=== PATIENT | female | born 1930 | race Caucasian/White ===

== ENCOUNTER 2017-01-21 19:33 | Emergency (ER) | payer OTHER ==
[~2017-01-21] VITALS: Ht 170.2 cm; Wt 102.8 kg
[~2017-01-21 19:33] MED LIST: ADVAIR 250/501 DISK IH; ATORVASTATIN CA20 MG PO; Advair 250/50 Diskus IH; Aspirin E.C. PO; BENTYL10 MG PO; CEFTIN500 MG PO; CENTRUM SILV1 TABLE1 PO; CLONAZEPAM0.5 MG PO; COLACE100 MG PO; Centrum Silver,Certa PO; DAILY VITAMIN1 EAC8 PO; ECOTRIN325 MG PO; ESCITALOPRAM OX10 MG PO; FERGON324 MG PO; FIBER TABS625 MG PO; FIBERCON625 MG PO; FLUOXETINE HCL10 MG PO; LANSOPRAZOLE30 MG PO; LEVOTHYROXINE112 MCG PO; LUMIGAN 0.50 DROP/22 RIGHT EYE; Levothroid,Synthroid PO; Lipitor PO; Lumigan 0.01% Ophth RIGHT EYE; MECLIZINE HCL25 MG PO; MONTELUKAST SOD10 MG PO; NITROSTAT0.4 MG SL; PROAIR HFA8.5 GM IH; PROPOXYPHENE1 TABLET PO; PROzac PO; Percocet 5/325,Endoc PO; Plavix PO; Prevacid PO; Proventil,Ventolin H IH; Prozac PO; Singulair PO; TEARS NATURALE-15 ML BOTH EYES; TYLENOL EXTRA500 MG PO; Tears Naturale II,Ar BOTH EYES; Tears Renewed,Artifi; Zocor PO
[2017-01-21 22:50] VITALS: BP 134/65
== END 2017-01-21 23:05 | disposition home or self-care (01) ==
LOC: EME 19:33
PROC: 0HQ0XZZ Repair Scalp Skin, External Approach (ICD-10-PCS; principal; 2017-01-21)
PROC: 3E0234Z Introduction of Serum, Toxoid and Vaccine into Muscle, Percutaneous Approach (ICD-10-PCS; principal; 2017-01-21)
DX: S01.01XA Laceration without foreign body of scalp, initial encounter (principal); W18.30XA Fall on same level, unspecified, initial encounter; Y93.01 Activity, walking, marching and hiking; Y92.009 Unspecified place in unspecified non-institutional (private) residence as the place of occurrence of the external cause; Z23 Encounter for immunization; E11.9 Type 2 diabetes mellitus without complications; J45.909 Unspecified asthma, uncomplicated; E03.9 Hypothyroidism, unspecified; F32.9 Major depressive disorder, single episode, unspecified; K21.9 Gastro-esophageal reflux disease without esophagitis; F41.9 Anxiety disorder, unspecified; Z91.040 Latex allergy status; Z88.2 Allergy status to sulfonamides
CPT/HCPCS: 70450; 99281; 99284

== ENCOUNTER 2017-06-14 18:26 | Emergency (ER) | payer OTHER ==
[~2017-06-14] VITALS: Ht 172.7 cm; Wt 97.8 kg
[2017-06-14 19:19] LABS: HEMATOCRIT 40.4 % (36.0-46.0); HEMOGLOBIN 12.7 G/DL (11.9-15.5); MCH 26.6 PG (29.0-34.0); MCHC 31.4 G/DL (30.0-36.0); MCV 84.5 FL (83-99); PLATELET COUNT 265 K/uL (156-360); RBC DIS.WIDTH-CV 19.7 % (11.8-14.6); RBC DIS.WIDTH-SD 60.7 % (39-53); RED BLOOD COUNT 4.78 M/uL (3.80-5.20); WHITE BLOOD COUNT 7.3 K/uL (4.1-10.2)
[2017-06-14 19:36] LABS: ALBUMIN 4.4 g/dL (3.2-4.8)
[2017-06-14 19:37] LABS: CHLORIDE 103 mEq/L (99-109); SODIUM 138 mEq/L (136-147)
[2017-06-14 19:39] LABS: GLUCOSE 123 mg/dL (70-99); TOTAL PROTEIN 7.8 g/dL (6.4-8.3)
[2017-06-14 19:41] LABS: TOTAL BILIRUBIN 0.8 mg/dL (0.0-1.0)
[2017-06-14 19:42] LABS: ALKALINE PHOSPHATASE 86 IU/L (3-129)
[2017-06-14 19:43] LABS: CREATININE 1.5 mg/dL (0.6-1.3); GFR ESTIMATE (CALCULATED) 35 mL/min/
[2017-06-14 19:44] LABS: AST (GOT) 12 IU/L (2-34); UREA NITROGEN (BUN) 31 mg/dL (9-23)
[2017-06-14 19:46] LABS: ALT (GPT) 8 IU/L (3-49); LIPASE 25 U/L (1.0-51.0)
[2017-06-14 21:57] LABS: APPEARANCE SL.HAZY ((CLEAR)); BILIRUBIN NEGATIVE; BLOOD MODERATE; COLOR YELLOW ((YELLOW)); GLUCOSE (STRIP) NEGATIVE; KETONES NEGATIVE; LEUKOCYTES LARGE; NITRITE NEGATIVE; PROTEIN (STRIP) 30; SPECIFIC GRAVITY 1.017 (1.000-1.030)
[2017-06-14 22:02] LABS: BACTERIA RARE /HPF; EPITHELIAL CELLS 1+ /HPF; HYALINE CASTS 0-5 /LPF; MUCUS TRACE /LPF; RED BLOOD CELLS TNTC /HPF (0-5); UCUL ADDED? YES; WHITE BLOOD CELLS TNTC /HPF (0-5)
[2017-06-14] MEDS ORDERED: KEFLEX500 MG PO (23:24)
[2017-06-14 23:46] VITALS: BP 126/70
== END 2017-06-14 23:51 | disposition home or self-care (01) ==
LOC: EME 18:26
DX: N39.0 Urinary tract infection, site not specified (principal); E86.0 Dehydration; E03.9 Hypothyroidism, unspecified; E78.5 Hyperlipidemia, unspecified; J44.9 Chronic obstructive pulmonary disease, unspecified; Z79.82 Long term (current) use of aspirin; Z88.2 Allergy status to sulfonamides
CPT/HCPCS: 80053; 81003; 83690; 85027; 87086 GA; 99281; 99285; J7030

== ENCOUNTER 2017-10-14 18:59 | Emergency (ER) | payer OTHER ==
[~2017-10-14] VITALS: Ht 170.2 cm; Wt 96.7 kg
[~2017-10-14 18:59] MED LIST changes: +KEFLEX500 MG PO
[2017-10-14 20:31] LABS: BASOPHIL (%) 0.8 % (0-1); BASOPHIL COUNT 0.1 K/uL (0-0.1); EOSINOPHIL (%) 3.2 % (0-5); EOSINOPHIL COUNT 0.2 K/uL (0-0.3); HEMATOCRIT 41.3 % (36.0-46.0); HEMOGLOBIN 13.4 G/DL (11.9-15.5); IMMATURE GRANULOCYTE (%) 0.3 % (0.0-0.7); LYMPHOCYTE (%) 20.6 % (15-42); LYMPHOCYTE COUNT 1.4 K/uL (1.0-2.8); MCH 29.6 PG (29.0-34.0); MCHC 32.4 G/DL (30.0-36.0); MCV 91.2 FL (83-99); MONOCYTE (%) 8.4 % (3-12); MONOCYTE COUNT 0.6 K/uL (0-0.8); NEUTROPHIL (%) 66.7 % (45-76); NEUTROPHIL COUNT 4.4 K/uL (1.8-6.4); PLATELET COUNT 223 K/uL (156-360); RBC DIS.WIDTH-CV 13.2 % (11.8-14.6); RBC DIS.WIDTH-SD 43.8 % (39-53); RED BLOOD COUNT 4.53 M/uL (3.80-5.20); WHITE BLOOD COUNT 6.6 K/uL (4.1-10.2)
[2017-10-14 20:37] LABS: INTER. NORMALIZED RATIO 1.1
[2017-10-14 20:40] LABS: PTT 28.9 SEC (25-37)
[2017-10-14 20:43] LABS: ALBUMIN 4.4 g/dL (3.2-4.8); CHLORIDE 105 mEq/L (99-109); POTASSIUM 4.5 mEq/L (3.7-5.4); SODIUM 142 mEq/L (136-147)
[2017-10-14 20:45] LABS: GLUCOSE 137 mg/dL (70-99); TOTAL PROTEIN 7.9 g/dL (6.4-8.3)
[2017-10-14 20:47] LABS: TOTAL BILIRUBIN 0.7 mg/dL (0.0-1.0)
[2017-10-14 20:49] LABS: ALKALINE PHOSPHATASE 86 IU/L (3-129); CREATININE 1.2 mg/dL (0.6-1.3); GFR ESTIMATE (CALCULATED) 45 mL/min/
[2017-10-14 20:50] LABS: UREA NITROGEN (BUN) 28 mg/dL (9-23)
[2017-10-14 20:51] LABS: AST (GOT) 11 IU/L (2-34)
[2017-10-14 20:52] LABS: ALT (GPT) 9 IU/L (3-49)
[2017-10-14 20:54] LABS: TROP-I INTERPRETATION NEGATIVE; TROPONIN-I < 0.01 ng/mL (0.0-0.30)
[2017-10-14 21:49] LABS: APPEARANCE CLEAR ((CLEAR)); BILIRUBIN NEGATIVE; BLOOD SMALL; COLOR YELLOW ((YELLOW)); GLUCOSE (STRIP) NEGATIVE; KETONES NEGATIVE; LEUKOCYTES LARGE; NITRITE NEGATIVE; PROTEIN (STRIP) NEGATIVE; SPECIFIC GRAVITY 1.028 (1.000-1.030); UROBILINOGEN 0.2 MG/DL (0.2-1.0)
[2017-10-14 21:54] LABS: BACTERIA NONE SEEN /HPF; EPITHELIAL CELLS RARE /HPF; MUCUS NONE SEEN /LPF; RED BLOOD CELLS 20-30 /HPF (0-5); UCUL ADDED? YES; WHITE BLOOD CELLS 20-30 /HPF (0-5)
[2017-10-14] MEDS ORDERED: LEVAQUIN750 MG PO (22:35)
[2017-10-14 22:56] VITALS: BP 160/87
== END 2017-10-14 22:57 | disposition home or self-care (01) ==
LOC: EME 18:59
PROVIDERS: Emergency Medicine
DX: N39.0 Urinary tract infection, site not specified (principal); E86.0 Dehydration; K44.9 Diaphragmatic hernia without obstruction or gangrene; E11.9 Type 2 diabetes mellitus without complications; J44.9 Chronic obstructive pulmonary disease, unspecified; E03.9 Hypothyroidism, unspecified; K21.9 Gastro-esophageal reflux disease without esophagitis; F32.9 Major depressive disorder, single episode, unspecified; F41.9 Anxiety disorder, unspecified; Z90.49 Acquired absence of other specified parts of digestive tract; Z91.040 Latex allergy status; Z91.041 Radiographic dye allergy status; Z88.2 Allergy status to sulfonamides
CPT/HCPCS: 71045; 74177; 80053; 81003; 83605; 83735; 84484; 85025; 85610; 85730; 87040; 87077; 87086; 87186; 93005; 99281; 99285